=== PATIENT | female | born 1985 | race Caucasian/White ===

== ENCOUNTER 2016-11-21 08:58 | Inpatient (IN) | payer OTHER ==
[~2016-11-21] VITALS: Ht 160 cm; Wt 97.1 kg
[~2016-11-21 08:58] MED LIST: MECLIZINE HCL25 MG PO
[2016-11-21 09:42] VITALS: BP 111/76
[2016-11-21 10:20] VITALS: BP 116/73
[2016-11-21 10:46] VITALS: BP 104/68
[2016-11-21] MEDS ORDERED: IBUPROFEN800 MG PO (11:00)
[2016-11-21 12:01] VITALS: BP 104/59
[2016-11-21 17:31] VITALS: BP 119/77
[2016-11-22] MEDS ORDERED: RANITIDINE HCL300 MG PO (05:43)
[2016-11-22] MEDS ORDERED: PRENATAL TABLE1 EAC3 PO (05:43)
[2016-11-22 06:46] LABS: EOSINOPHIL (%) 0.3 % (0-5); HEMATOCRIT 29.5 % (36.0-46.0); IMMATURE GRANULOCYTE (%) 0.5 % (0.0-0.7); IMMATURE GRANULOCYTE COUNT 0.1 K/uL; INSTRUMENT ABS NEUTROPHIL CT 7.5 K/uL; LYMPHOCYTE COUNT 2.1 K/uL (1.0-2.8); MCH 28.7 PG (29.0-34.0); MCHC 33.2 G/DL (30.0-36.0); MCV 86.3 FL (83-99); MEAN PLAT.VOLUME 11.5 uM^3 (9.5-12.4); MONOCYTE (%) 5.4 % (3-12); MONOCYTE COUNT 0.6 K/uL (0-0.8); NEUTROPHIL (%) 72.7 % (45-76); NEUTROPHIL COUNT 7.5 K/uL (1.8-6.4); PLATELET COUNT 227 K/uL (156-360); RBC DIS.WIDTH-CV 14.2 % (11.8-14.6); RED BLOOD COUNT 3.42 M/uL (3.80-5.20); WHITE BLOOD COUNT 10.3 K/uL (4.1-10.2)
[2016-11-22 08:30] VITALS: BP 126/72
[2016-11-22 15:54] VITALS: BP 119/67
[2016-11-23] MEDS ORDERED: IRON325 M1 PO (10:17)
== END 2016-11-23 15:09 | disposition home or self-care (01) | DRG 775 ==
LOC: LDRP-OP 08:58 → 2WEST 08:59 → LDRP-OP 12-21 11:49
PROVIDERS: Advanced Practice Midwife
PROC: 0UQGXZZ Repair Vagina, External Approach (ICD-10-PCS; principal; 2016-11-21)
PROC: 10E0XZZ Delivery of Products of Conception, External Approach (ICD-10-PCS; principal; 2016-11-21)
DX: O71.4 Obstetric high vaginal laceration alone (principal); O62.3 Precipitate labor; O99.214 Obesity complicating childbirth; E66.9 Obesity, unspecified; O99.824 Streptococcus B carrier state complicating childbirth; O99.02 Anemia complicating childbirth; D50.9 Iron deficiency anemia, unspecified; O99.62 Diseases of the digestive system complicating childbirth; K21.9 Gastro-esophageal reflux disease without esophagitis; Z87.440 Personal history of urinary (tract) infections; Z3A.40 40 weeks gestation of pregnancy; Z37.0 Single live birth; Z68.38 Body mass index [BMI] 38.0-38.9, adult
CPT/HCPCS: 85025; J2590

== ENCOUNTER 2017-01-06 07:20 | Day surgery (SDC) | payer OTHER ==
[~2017-01-06] VITALS: Ht 160 cm; Wt 88.5 kg
[~2017-01-06 07:20] MED LIST changes: +IBUPROFEN800 MG PO; +IRON325 M1 PO; +MOTRIN800 MG PO; +PRENATAL TABLE1 EAC3 PO; +RANITIDINE HCL300 MG PO
[2017-01-06] MEDS ORDERED: MICROGESTIN1 EAC1 PO (08:28)
[2017-01-06 08:29] VITALS: BP 111/65
[2017-01-06] MEDS ORDERED: NORCO 5/3251 TABLET PO (11:08)
[2017-01-06 12:15] VITALS: BP 127/72
[2017-01-06 13:15] VITALS: BP 118/64
[2017-01-06 14:31] VITALS: BP 116/76
== END 2017-01-06 14:31 | disposition home or self-care (01) ==
LOC: SDC 07:20
PROC: 0FT44ZZ Resection of Gallbladder, Percutaneous Endoscopic Approach (ICD-10-PCS; principal; 2017-01-06)
DX: K80.10 Calculus of gallbladder with chronic cholecystitis without obstruction (principal); E66.9 Obesity, unspecified; Z68.33 Body mass index [BMI] 33.0-33.9, adult; Z83.3 Family history of diabetes mellitus; Z80.0 Family history of malignant neoplasm of digestive organs; Z87.891 Personal history of nicotine dependence
CPT/HCPCS: 88304; J1885; J2250; J2405; J2710; J2765; J3010; Q0175

== ENCOUNTER 2017-01-25 19:00 | Emergency (ER) | payer OTHER ==
[~2017-01-25] VITALS: Ht 160 cm; Wt 87.7 kg
[~2017-01-25 19:00] MED LIST changes: +MICROGESTIN FE1 EACH PO; +NORCO 5/3251 TABLET PO
[2017-01-25 19:29] LABS: MCH 26.9 PG (29.0-34.0); MCHC 31.7 G/DL (30.0-36.0); MCV 84.9 FL (83-99); MEAN PLAT.VOLUME 10.3 uM^3 (9.5-12.4); PLATELET COUNT 342 K/uL (156-360); RBC DIS.WIDTH-CV 13.4 % (11.8-14.6); RBC DIS.WIDTH-SD 41.8 % (39-53); RED BLOOD COUNT 4.24 M/uL (3.80-5.20); WHITE BLOOD COUNT 8.3 K/uL (4.1-10.2)
[2017-01-25 19:40] LABS: CHLORIDE 110 mEq/L (99-109); POTASSIUM 3.8 mEq/L (3.7-5.4); SODIUM 142 mEq/L (136-147)
[2017-01-25 19:42] LABS: GLUCOSE 85 mg/dL (70-99)
[2017-01-25 19:44] LABS: ANION GAP 11 MEQ/L (2-14); TOTAL BILIRUBIN 0.4 mg/dL (0.0-1.0)
[2017-01-25 19:46] LABS: ALKALINE PHOSPHATASE 96 IU/L (3-129); GFR ESTIMATE (CALCULATED) > 59 mL/min/
[2017-01-25 19:47] LABS: UREA NITROGEN (BUN) 11 mg/dL (9-23)
[2017-01-25 19:49] LABS: LIPASE 23 U/L (1.0-51.0)
[2017-01-25 19:57] LABS: QUANTITATIVE HCG < 4.0 MIU/ML
[2017-01-25 20:21] LABS: ADD MIUA? YES; BILIRUBIN NEGATIVE; BLOOD MODERATE; COLOR YELLOW ((YELLOW)); GLUCOSE (STRIP) NEGATIVE; KETONES NEGATIVE; LEUKOCYTES TRACE; NITRITE NEGATIVE; PROTEIN (STRIP) NEGATIVE; SPECIFIC GRAVITY 1.016 (1.000-1.030); UROBILINOGEN 0.2 MG/DL (0.2-1.0)
[2017-01-25 20:29] LABS: BACTERIA RARE /HPF; EPITHELIAL CELLS RARE /HPF; MUCUS TRACE /LPF; RED BLOOD CELLS 0-5 /HPF (0-5); UCUL ADDED? NO; WHITE BLOOD CELLS 0-5 /HPF (0-5)
[2017-01-25] MEDS ORDERED: TRAMADOL HCL50 MG PO (22:22)
[2017-01-25 22:25] VITALS: BP 122/77
== END 2017-01-25 22:26 | disposition home or self-care (01) ==
LOC: EME 19:00
DX: R10.11 Right upper quadrant pain (principal); K21.9 Gastro-esophageal reflux disease without esophagitis
CPT/HCPCS: 74177; 80053; 81003; 83690; 84702; 85027; 99281; 99284; J2405; J7030

== ENCOUNTER 2017-01-27 14:57 | Inpatient (IN) | payer OTHER ==
[~2017-01-27] VITALS: Ht 160 cm; Wt 86.7 kg
[~2017-01-27 14:57] MED LIST changes: +TRAMADOL HCL50 MG PO
[2017-01-27 16:18] VITALS: BP 117/82
[2017-01-27 20:27] VITALS: BP 117/80
[2017-01-27 23:50] VITALS: BP 132/66
[2017-01-28 04:22] VITALS: BP 109/70
[2017-01-28 05:56] LABS: HEMATOCRIT 33.6 % (36.0-46.0); MCH 27.6 PG (29.0-34.0); MCHC 32.1 G/DL (30.0-36.0); MCV 85.9 FL (83-99); MEAN PLAT.VOLUME 10.6 uM^3 (9.5-12.4); PLATELET COUNT 256 K/uL (156-360); RBC DIS.WIDTH-SD 43.7 % (39-53); RED BLOOD COUNT 3.91 M/uL (3.80-5.20); WHITE BLOOD COUNT 5.3 K/uL (4.1-10.2)
[2017-01-28 06:41] LABS: ALKALINE PHOSPHATASE 225 IU/L (3-129); ANION GAP 10 MEQ/L (2-14); CHLORIDE 107 MEQ/L (99-109); GFR ESTIMATE (CALCULATED) > 59 mL/min/; GLUCOSE 69 mg/dL (70-99); LIPASE 530 U/L (1.0-51.0); POTASSIUM 3.5 MEQ/L (3.7-5.4); SAMPLE HEMOLYSIS CHECK 0; SAMPLE ICTERIC CHECK 0; SAMPLE LIPEMIA CHECK 0; SODIUM 139 MEQ/L (136-147); UREA NITROGEN (BUN) 13 mg/dL (9-23)
[2017-01-28 06:46] LABS: AMYLASE 603 IU/L (1-118); TOTAL BILIRUBIN 0.9 MG/DL (0.0-1.0)
[2017-01-28 07:26] VITALS: BP 131/76
[2017-01-28 11:07] VITALS: BP 113/65
[2017-01-28 15:40] VITALS: BP 134/83
[2017-01-28 19:22] VITALS: BP 133/74
[2017-01-28 23:17] VITALS: BP 120/70
[2017-01-29 03:30] VITALS: BP 119/69
[2017-01-29 07:45] VITALS: BP 112/71
[2017-01-29 07:52] LABS: ALKALINE PHOSPHATASE 183 IU/L (3-129); LIPASE 137 U/L (1.0-51.0)
[2017-01-29 07:55] LABS: AMYLASE 195 IU/L (1-118); DIRECT BILIRUBIN 0.2 mg/dL (0.0-0.3); TOTAL BILIRUBIN 0.6 MG/DL (0.0-1.0)
[2017-01-29 16:15] VITALS: BP 130/58
[2017-01-29 23:27] VITALS: BP 111/59
[2017-01-30 06:30] LABS: ALKALINE PHOSPHATASE 163 IU/L (3-129); DIRECT BILIRUBIN 0.2 mg/dL (0.0-0.3); LIPASE 67 U/L (1.0-51.0); TOTAL BILIRUBIN 0.5 MG/DL (0.0-1.0)
[2017-01-30 07:57] VITALS: BP 102/57
== END 2017-01-30 12:59 | disposition home or self-care (01) | DRG 440 ==
LOC: 2EAST 14:57 → ENRESERV 14:58 → 2EASTP 15:53
PROVIDERS: Surgery
DX: K85.90 Acute pancreatitis without necrosis or infection, unspecified (principal); K80.50 Calculus of bile duct without cholangitis or cholecystitis without obstruction; Z90.49 Acquired absence of other specified parts of digestive tract
CPT/HCPCS: 36415; 74177; 74181; 80053; 80076; 81003; 82150; 82247; 82248; 83690; 84702; 85025; 85027; 99281; 99284; C9113; J0744; J1650; J2405; J7030; J7120

== ENCOUNTER 2017-02-11 09:11 | Emergency (ER) | payer OTHER ==
[~2017-02-11] VITALS: Ht 160 cm; Wt 86.6 kg
[2017-02-11 09:14] VITALS: BP 119/91
[2017-02-11] MEDS ORDERED: FLEXERIL10 MG PO (09:35)
[2017-02-11] MEDS ORDERED: MOTRIN800 MG PO (09:35)
== END 2017-02-11 10:09 | disposition home or self-care (01) ==
LOC: EME 09:11
DX: S16.1XXA Strain of muscle, fascia and tendon at neck level, initial encounter (principal); V49.40XA Driver injured in collision with unspecified motor vehicles in traffic accident, initial encounter
CPT/HCPCS: 99281; 99282